=== PATIENT | male | born 1990 | race Caucasian/White ===

== ENCOUNTER 2022-12-27 09:38 | Emergency (ER) | payer OTHER ==
[~2022-12-27] VITALS: Ht 170.2 cm; Wt 70.8 kg
[2022-12-27 09:47] VITALS: BP 182/104
[2022-12-27] MEDS ORDERED: BACITRACIN OINT 500 UNITS/GM PKT TP ONE (09:55)
[2022-12-27] MEDS ORDERED: IBUPROFEN 400 MG TAB PO ONE (09:55)
[2022-12-27] MEDS ORDERED: NAPR-1704 PO (10:03)
[2022-12-27] MEDS ORDERED: BACI-416 TP (10:03)
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
== END 2022-12-27 10:20 | disposition home or self-care (01) ==
LOC: MED 09:38
DX: T21.12XA Burn of first degree of abdominal wall, initial encounter (principal); T31.0 Burns involving less than 10% of body surface; X08.8XXA Exposure to other specified smoke, fire and flames, initial encounter; Y93.89 Activity, other specified; Y92.89 Other specified places as the place of occurrence of the external cause; Y99.8 Other external cause status
CPT/HCPCS: 16000; 90471; 90715; 99283